=== PATIENT | female | born 1985 | race American Indian/Alaskan Native ===

== ENCOUNTER 2022-02-09 23:17 | Emergency (ER) | payer SELFPAY ==
[2022-02-10] MEDS ORDERED: ONDANSETRON 4 MG ODT TAB PO ONE (03:11)
[2022-02-10] MEDS ORDERED: KETOROLAC 30 MG/1 ML INJ IM ONE (03:11)
[2022-02-10] MEDS ORDERED: BUTALB/ACETAMINOPHEN/CAFFEINE TAB PO ONE (03:11)
--- NOTE | 2022-02-10 03:16 | Emergency Department Report ---
ED Headache HPI - General Chief Complaint: Headache Stated Complaint: HEADACHE SINCE FRIDAY Source: patient, RN notes reviewed Exam Limitations: no limitations - History of Present Illness Initial Comments: Patient is a 37-year-old -[place] female with no past medical history who presents to the ED with complaint of acute onset persistent frontal headache that radiates to the occipital scalp and to posterior neck for the last 1 week. Patient states that she has been taking ggkc-[id number]-wzyecla medications with no relief. Patient denies nausea and vomiting, change in vision, dizziness, syncope, fall, traumatic injury, nasal and sinus congestion, sore throat, abdominal pain, chest pain or shortness of breath, fever and chills. Timing/Duration: 1 week Quality: severe, pressure, sharp Head Injury Location: frontal, occipital Recent Head Trauma: no recent headache/trauma Modifying Factors: improves with: medication Associated Symptoms: denies symptoms, facial pain. denies: confusion, fatigue, fever/chills, loss of consciousness, nausea/vomiting, nasal congestion, nasal drainage, numbness in legs/feet, seizures, sinus infection, stiff neck, vision changes, weakness Allergies/Adverse Reactions: Allergies cephalexin [From Keflex] Allergy (Verified 02/09/22 23:20) Hives loratadine [From Claritin] Allergy (Verified 02/09/22 23:20) Hives Home Medications: Ambulatory Orders Amoxicillin/Potassium Clav [Augmentin 875-125 Tablet] 1 each PO Q12H #20 tab 02/10/22 Butalb/Acetamin/Caff 50-325-40 [Fioricet 50-325-40] 1 - 2 tab PO Q6HR PRN #15 tab 02/10/22 Ketorolac [Toradol] 1 tab PO Q8H PRN #20 tab 02/10/22 Promethazine [Phenergan] 25 mg PO Q6HR PRN #30 tab 02/10/22 ED Review of Systems ROS: Stated complaint: HEADACHE SINCE FRIDAY Other details as noted in HPI Constitutional: denies: chills, fever Eyes: denies: eye pain, eye discharge, vision change ENT: denies: ear pain, throat pain Respiratory: denies: cough, shortness of breath, wheezing Cardiovascular: denies: chest pain, palpitations Endocrine: no symptoms reported Gastrointestinal: denies: abdominal pain, nausea, diarrhea Genitourinary: denies: urgency, dysuria, discharge Musculoskeletal: denies: back pain, joint swelling, arthralgia Skin: denies: rash, lesions Neurological: headache. denies: weakness, paresthesias Psychiatric: denies: anxiety, depression Hematological/Lymphatic: denies: easy bleeding, easy bruising ED Past Medical Hx - Medications Home Medications: Home Medications Medication Instructions Recorded Confirmed Last Taken Type Amoxicillin/Potassium Clav 1 each PO Q12H #20 tab 02/10/22 Unknown Rx [Augmentin 875-125 Tablet] Butalb/Acetamin/Caff 50-325-40 1 - 2 tab PO Q6HR PRN #15 tab 02/10/22 Unknown Rx [Fioricet 50-325-40] Ketorolac [Toradol] 1 tab PO Q8H PRN #20 tab 02/10/22 Unknown Rx Promethazine [Phenergan] 25 mg PO Q6HR PRN #30 tab 02/10/22 Unknown Rx ED Physical Exam - General Limitations: No Limitations General appearance: alert, in no apparent distress - Head Head exam: Present: atraumatic, normocephalic, normal inspection - Eye Eye exam: Present: normal appearance, PERRL, EOMI Pupils: Present: normal accommodation - ENT ENT exam: Present: normal exam, normal orophraynx, mucous membranes moist, TM's normal bilaterally, normal external ear exam - Neck Neck exam: Present: normal inspection, full ROM - Respiratory Respiratory exam: Present: normal lung sounds bilaterally. Absent: respiratory distress, wheezes, rales, rhonchi, chest wall tenderness, accessory muscle use, prolonged expiratory - Cardiovascular Cardiovascular Exam: Present: regular rate, normal rhythm, normal heart sounds. Absent: systolic murmur, diastolic murmur, rubs, gallop - GI/Abdominal GI/Abdominal exam: Present: soft, normal bowel sounds. Absent: tenderness, guarding, rebound, hyperactive bowel sounds, hypoactive bowel sounds - Extremities Exam Extremities exam: Present: normal inspection, full ROM, normal capillary refill. Absent: tenderness, pedal edema, joint swelling, calf tenderness - Back Exam Back exam: Present: normal inspection, full ROM. Absent: tenderness, CVA tenderness (R), CVA tenderness (L), muscle spasm, paraspinal tenderness, vertebral tenderness - Neurological Exam Neurological exam: Present: alert, oriented X3, CN II-XII intact, normal gait, reflexes normal - Psychiatric Psychiatric exam: Present: normal affect, normal mood - Skin Skin exam: Present: warm, dry, intact, normal color. Absent: rash ED Course Vital Signs 02/09/22 23:23 Temperature 98.3 F Pulse Rate 78 Respiratory 16 Rate Blood Pressure 94/64 O2 Sat by Pulse 98 Oximetry ED Medical Decision Making - Medical Decision Making This is a 37-year-old -[place] female with no past medical history who presents to the ED with complaint of acute onset persistent frontal headache that radiates to the occipital scalp and to posterior neck for the last 1 week. Patient states that she has been taking glyh-jdy-ihskang medications with no relief. In the ED, patient is alert and oriented x3 and is not in any distress. Patient is hemodynamically stable. Patient has not exhibited any neurological symptoms. Patient was therefore treated in the ED for pain and was discharged home on medications. Patient was advised to follow-up with her primary care physician in 5 to 7 days for reevaluation or return to the ED immediately if symptoms get worse. - Differential Diagnosis Sinus headache; sinusitis; tension headache, cluster headache; Critical care attestation.: If time is entered above; I have spent that time in minutes in the direct care of this critically ill patient, excluding procedure time. ED Disposition Clinical Impression: Intractable cluster headache, Sinus headache Acute frontal sinusitis Qualifiers: Recurrence: non-recurrent Qualified Code(s): J01.10 - Acute frontal sinusitis, unspecified Disposition: 01 HOME / SELF CARE / HOMELESS Is pt being admited?: No Does the pt Need Aspirin: No Condition: Stable Instructions: Sinusitis, Adult, [id number], Tension Headache, Adult, [id number], General Headache Without Cause, [id number], Cervicogenic Headache, Sinus Headache, [id number] Additional Instructions: Your symptoms are likely due to sinus headache, likely due to frontal sinusitis or severe cluster headache. Therefore take medications with food, drink plenty of fluids and follow-up with your primary care physician in 7 to 10 days for reevaluation. Return to the ED immediately if symptoms get worse. Prescriptions: Amoxicillin/Potassium Clav [Augmentin 875-125 Tablet] 1 each PO Q12H #20 tab Butalb/Acetamin/Caff 50-325-40 [Fioricet 50-325-40] 1 - 2 tab PO Q6HR PRN #15 tab PRN Reason: Headache Promethazine [Phenergan] 25 mg PO Q6HR PRN #30 tab PRN Reason: Nausea Ketorolac [Toradol] 1 tab PO Q8H PRN #20 tab PRN Reason: Pain Referrals: [facility] [Provider Group] - 7-10 days Time of Disposition: 03:16 Print Language: TAMAZIGHT
[2022-02-10 03:54] VITALS: BP 96/64
== END 2022-02-10 03:54 | disposition home or self-care (01) ==
LOC: ED 23:17
DX: J01.10 Acute frontal sinusitis, unspecified (principal); G44.001 Cluster headache syndrome, unspecified, intractable; Z88.1 Allergy status to other antibiotic agents; Z88.8 Allergy status to other drugs, medicaments and biological substances; Z79.899 Other long term (current) drug therapy
CPT/HCPCS: 96372; 99282; J1885; J3490; Q0162